=== PATIENT | male | born 1950 | race Caucasian/White ===

== ENCOUNTER 2018-05-04 10:10 | Emergency (ER) | payer MEDICARE, OTHER ==
[2018-05-04 10:41] LABS: BASOPHILS % (AUTO) 0.6 %; EOSINOPHILS # (AUTO) 0.3 10^3/uL (0.0-0.7); HGB - HEMOGLOBIN 14.2 g/dL (14.0-18.0); LYMPHOCYTES # (AUTO) 1.2 10^3/uL (1.5-3.5); LYMPHOCYTES % (AUTO) 18.5 %; MEAN CORPUSCULAR HEMOGLOBIN 30.2 pg (27.0-31.0); MEAN CORPUSCULAR VOLUME 86.3 fL (80.0-94.0); MEAN PLATELET VOLUME 7.3 fL (7.4-11.4); MONOCYTES # (AUTO) 0.5 10^3/uL (0.0-1.0); NEUTROPHILS # (AUTO) 4.5 10^3/uL (1.5-6.6); NEUTROPHILS % (AUTO) 68.9 %; PLT - PLATELET COUNT 240 10^3/uL (130-450); RED CELL DISTRIBUTION WIDTH 13.8 % (12.0-15.0); WHITE BLOOD COUNT 6.5 x10^3/uL (4.8-10.8)
[2018-05-04 10:54] LABS: ALBUMIN 3.7 g/dL (3.2-5.5); ALBUMIN/GLOBULIN RATIO 0.9 (1.0-2.2); BILIRUBIN,TOTAL 1.1 mg/dL (0.2-1.0); CALCIUM 9.3 mg/dL (8.5-10.3); CREATININE 0.9 mg/dL (0.6-1.2); TOTAL PROTEIN 7.6 g/dL (6.7-8.2)
--- NOTE | 2018-05-04 11:33 | XRAY Report ---
Procedure Date: 05/04/2018 Accession Number: [id number] / [id number] Procedure: XR - Chest 2 View X-Ray CPT Code: 95745 FULL RESULT: EXAM: CHEST RADIOGRAPHY EXAM DATE: 05/04/2018 11:12 AM. CLINICAL HISTORY: Chest pain. COMPARISON: None. TECHNIQUE: 2 views. FINDINGS: Lungs/Pleura: No focal opacities evident. No pleural effusion. No pneumothorax. Normal volumes. Mediastinum: Heart and mediastinal contours are unremarkable. Other: None. IMPRESSION: Normal 2-view chest radiography. RADIA
--- NOTE | 2018-05-04 11:43 | ED Physician Documentation ---
PD HPI CHEST PAIN - Stated complaint Stated Complaint: CHEST PX - Chief complaint Chief Complaint: Cardiac - History obtained from History obtained from: Patient - History of Present Illness Timing - onset: Today Timing - onset during: Light activity (onset substernal chest pain soon after awakening this morning. Symptoms about 7-8 am, lasted for 10-15 minutes and improved with NTG. Feeling okay since. Has history of known CAD from recent workup including heart angiogram. Is scheduled for CABG this in [place]. He is not on any anti-anginals regularly.) Timing - duration: Minutes (10-15) Timing - details: Abrupt onset, Now resolved Quality: Pressure, Tightness. No: Sharp, Tearing Location: Substernal, Epigastric Radiation: No: Back Improved by: Nitro (single dose) Worsened by: Exertion. No: Inspiration, Movement, Palpation Associated symptoms: Shortness of air. No: Nausea, Feeling faint / dizzy Similar symptoms before: Has not had sx before (has had exertional dyspnea and some chest pressure, but not had it with just simple activity in the past.) Review of Systems Constitutional: denies: Fever, Chills, Myalgias Nose: denies: Rhinorrhea / runny nose, Congestion Throat: denies: Sore throat Cardiac: denies: Palpitations, Pedal edema, Calf pain Respiratory: denies: Cough, Wheezing GI: denies: Abdominal Pain, Nausea, Vomiting Skin: denies: Rash, Lesions Neurologic: denies: Generalized weakness, Focal weakness, Numbness, Near syncope , Altered mental status, Headache, Head injury Endocrine: denies: Easy bruising / bleeding PD PAST MEDICAL HISTORY - Past Medical History Past Medical History: Yes Cardiovascular: Coronary artery disease (JUNE and some chest pressure led to evaluation and subsequent heart angio, showing diffuse nonstentable lesions. Is scheduled for CABG in 3 days. ) Respiratory: None Neuro: None Endocrine/Autoimmune: None GI: GERD : None Psych: None Musculoskeletal: Osteoarthritis Derm: None - Past Surgical History Past Surgical History: Yes Ortho: Shoulder arthroplasty - Present Medications Home Medications: Ambulatory Orders Medication Instructions Recorded Confirmed Aspirin 05/04/18 05/04/18 Diphenhydramine HCl [Allergy 05/04/18 Medication] Fluticasone [Flonase] 05/04/18 Isosorbide Dinitrate 10 mg PO DAILY #5 tablet 05/04/18 Metoprolol Tartrate 12.5 mg PO DAILY #5 tablet 05/04/18 [place]-3/Dha/Epa/Fish Oil [Fish Oil 05/04/18 1,000 mg Softgel] Omeprazole [PriLOSEC] 05/04/18 - Allergies Allergies/Adverse Reactions: Allergies Allergy/AdvReac Type Severity Reaction Status Date / Time simvastatin Allergy Cramps Verified 05/04/18 10:17 - Social History Does the pt smoke?: No Smoking Status: Never smoker Does the pt drink ETOH?: Yes ETOH Use: Beer, Liquor Does the pt have substance abuse?: No - Family History Family history: reports: CAD - Immunizations Immunizations: TDAP >10years/unknown - POLST Patient has POLST: No PD ED PE NORMAL - Vitals Vital signs reviewed: Yes - General General: Alert and oriented X 3, No acute distress, Well developed/nourished - HEENT HEENT: Moist mucous membranes, Pharynx benign - Neck Neck: Supple, no meningeal sign, No adenopathy - Cardiac Cardiac: RRR, No murmur - Respiratory Respiratory: Clear bilaterally - Abdomen Abdomen: Soft, Non tender - Back Back: No CVA TTP - Derm Derm: Normal color, Warm and dry - Extremities Extremities: No deformity, No tenderness to palpate, Normal ROM s pain, No edema , No calf tenderness / cord - Neuro Neuro: Alert and oriented X 3, No motor deficit, Normal speech Results - Vitals Vitals: Vital Signs - 24 hr 05/04/18 05/04/18 05/04/18 10:14 13:31 14:18 Temperature 36.7 C Heart Rate 72 67 67 Respiratory 20 16 16 Rate Blood Pressure 138/83 H 146/89 H 144/86 H O2 Saturation 96 97 97 Oxygen O2 Source Room air - EKG (time done) 10:17 Rate: Rate (enter#) (74) Rhythm: NSR [place]: Normal Intervals: Normal OK QRS: Normal Ischemia: Normal ST segments, Q waves (leads III and aVF). No: ST elevation c/ w ischemia, ST depression - Labs Labs: Laboratory Tests 05/04/18 05/04/18 05/04/18 10:30 10:30 10:30 WBC 6.5 RBC 4.70 Hgb 14.2 Hct 40.6 L MCV 86.3 MCH 30.2 MCHC 35.0 RDW 13.8 Plt Count 240 MPV 7.3 L Neut # (Auto) 4.5 Lymph # (Auto) 1.2 L [place] # (Auto) 0.5 Eos # (Auto) 0.3 Baso # (Auto) 0.0 Absolute Nucleated RBC 0.00 Nucleated RBC % 0.0 Sodium 135 Potassium 3.6 Chloride 103 Carbon Dioxide 23 Anion Gap 9.0 BUN 17 Creatinine 0.9 Estimated GFR (MDRD) 85 L Glucose 124 H Calcium 9.3 Total Bilirubin 1.1 H AST 180 H ALT 90 H Alkaline Phosphatase 82 Troponin I < 0.04 Total Protein 7.6 Albumin 3.7 Globulin 3.9 Albumin/Globulin Ratio 0.9 L Lipase 43 05/04/18 12:42 WBC RBC Hgb Hct MCV MCH MCHC RDW Plt Count MPV Neut # (Auto) Lymph # (Auto) [place] # (Auto) Eos # (Auto) Baso # (Auto) Absolute Nucleated RBC Nucleated RBC % Sodium Potassium Chloride Carbon Dioxide Anion Gap BUN Creatinine Estimated GFR (MDRD) Glucose Calcium Total Bilirubin AST ALT Alkaline Phosphatase Troponin I < 0.04 Total Protein Albumin Globulin Albumin/Globulin Ratio Lipase - Rads (name of study) chest Radiology: Prelim report reviewed, EMP read contemporaneously (no acute process) PD MEDICAL DECISION MAKING - ED course Complexity details: reviewed results, considered differential, d/w patient, d/w eligibility consultant (Dr. Tafoya - CT surgery at [place], who would like patient on low dose beta and nitrate. To call him or return to ED if recurrent CP and would do transfer/CABG sooner, otherwise has preop assessment tomorrow and surgery . ) - Sepsis Event Vital Signs: Vital Signs - 24 hr 05/04/18 05/04/18 05/04/18 10:14 13:31 14:18 Temperature 36.7 C Heart Rate 72 67 67 Respiratory 20 16 16 Rate Blood Pressure 138/83 H 146/89 H 144/86 H O2 Saturation 96 97 97 Oxygen O2 Source Room air Departure - Departure Disposition: 01 Home, Self Care Clinical Impression: Angina pectoris Chest pain Qualifiers: Chest pain type: precordial pain Qualified Code(s): R07.2 - Precordial pain Condition: Stable Record reviewed to determine appropriate education?: Yes Instructions: ED Chest Pain Angina Stable Prescriptions: Isosorbide Dinitrate 10 mg PO DAILY #5 tablet Metoprolol Tartrate 12.5 mg PO DAILY #5 tablet Comments: Continue your baby aspirin a day. Stay well-hydrated. Start metoprolol 12-1/2 mg daily and isosorbide 10 mg daily. Follow-up with the preop evaluation tomorrow as planned. If you have recurrent chest pain, use and nitroglycerin tablets that you have. Call Dr. Tafoya's office or return to the ER if you have recurring episodes of the chest pain as this may indicate a need for the bypass surgery sooner. Otherwise plan on the surgery as scheduled. Discharge Date/Time: 05/04/18 14:18
[2018-05-04] MEDS ORDERED: METOPROLOL TARTRATE 50 MG TABLET PO STA (12:32)
[2018-05-04 14:19] VITALS: BP 144/86
[2018-05-05] MEDS ORDERED: ISOSORBIDE MONONITRATE ER 30 MG TABLET PO ONE (13:00)
== END 2018-05-04 14:18 | disposition home or self-care (01) ==
LOC: ED 10:10
DX: I25.119 Atherosclerotic heart disease of native coronary artery with unspecified angina pectoris (principal); R07.2 Precordial pain; Z82.49 Family history of ischemic heart disease and other diseases of the circulatory system; Z79.82 Long term (current) use of aspirin; K21.9 Gastro-esophageal reflux disease without esophagitis
CPT/HCPCS: 36415; 71046; 80053; 83690; 84484; 85025; 93005; 99283; 99284; A9270

== ENCOUNTER 2018-11-30 11:33 | Outpatient (CLI) | payer MEDICARE, OTHER ==
--- NOTE | 2018-11-30 14:41 | XRAY Report ---
Reason: PAIN IN LEFT FOOT Procedure Date: 11/30/2018 Accession Number: [id number] / [id number] Procedure: XR - Foot 2 View LT CPT Code: FULL RESULT: EXAM: LEFT FOOT RADIOGRAPHY. EXAM DATE: 11/30/2018 12:05 PM. CLINICAL HISTORY: Pain in left foot. COMPARISON: None. TECHNIQUE: 2 views. FINDINGS: Bones: Mild inferior calcaneal spurring is noted. No fractures or bone lesions. Joints: Normal. No subluxations. Soft Tissues: Normal. No soft tissue swelling. IMPRESSION: Mild inferior calcaneal spurring. RADIA
== END 2018-11-30 11:34 | disposition home or self-care (01) ==
LOC: DI 11:33
PROVIDERS: ATTEND Nurse Practitioner Family
DX: M79.672 Pain in left foot (principal); M77.32 Calcaneal spur, left foot

== ENCOUNTER 2020-05-12 07:14 | Outpatient (CLI) | payer MEDICARE, OTHER ==
--- NOTE | 2020-05-12 10:54 | Ultrasound Report ---
PROCEDURE: Abdomen Complete INDICATIONS: RT UPPER QUADRANT PAIN TECHNIQUE: Real-time scanning was performed of the abdominal and retroperitoneal organs, with image documentatio n. COMPARISON: None. FINDINGS: Liver: Liver is normal in size and homogeneous in echotexture, diffusely hyperechoic consistent with mild to moderate fatty infiltration. Gallbladder: The gallbladder appears abnormal, with abnormal gallbladder wall thickening generally me asuring up to 6 millimeters but with a region of either tumefactive sludge or mass, adherent, measuri ng up to 0.6 x 1.1 x 2.1 cm along the posterior gallbladder wall. Biliary ducts: Intrahepatic bile ducts are non-dilated. Extrahepatic bile duct caliber measures 4.0 mm. Normal is 6-7 mm or less in diameter, or 10 mm or less post-cholecystectomy. No adjacent peric holecystic free fluid is seen. Pancreas: Visualized portions of the pancreas are sonographically normal. Spleen: Spleen is normal in size and homogeneous in echotexture. Kidneys: Kidneys are normal in size and echotexture. Right kidney measures 12.0 cm long; left kidne y measures 12.3 cm long. No hydronephrosis or nephrolithiasis. No solid masses. Note is made of an exophytic cyst measuring up to 3.8 x 3.9 x 4.5 cm at the right kidney. Aorta: Visualized aorta is normal in caliber at less than 3 cm. Iliacs: Proximal common iliac arteries are normal in caliber at less than 2.5 cm. IVC: Intrahepatic inferior vena cava is patent. Miscellaneous: No free abdominal fluid. IMPRESSION: Abnormal appearance of the gallbladder with concentric mural thickening up to 6 mm throughout the gal lbladder and an area of posterior masslike filling defect within the gallbladder lumen measuring up t o 1.1 x 2.1 x 0.6 cm. Both gallbladder neoplasm and tumefactive adherent sludge could produce this ap pearance. Surgical consultation is recommended. No mass within the liver is found, no biliary distention is seen. Fatty infiltration is the likely ca use for mild to moderate increased echotexture of the liver parenchyma. Reviewed by: Iker Man MD on 05/12/2020 10:53 AM PDT Approved by: Iker Man MD on 05/12/2020 10:53 AM PDT Station ID: [id number]
== END 2020-05-12 07:15 | disposition home or self-care (01) ==
LOC: DI 07:14
PROVIDERS: ATTEND Nurse Practitioner Family
DX: R93.2 Abnormal findings on diagnostic imaging of liver and biliary tract (principal)
CPT/HCPCS: 76700

== ENCOUNTER 2020-05-25 14:15 | Outpatient (CLI) | payer MEDICARE, OTHER | END 2020-05-25 14:16 | disposition home or self-care (01) | LOC: LAB 14:15 | PROVIDERS: ATTEND Surgery | DX: Z01.812 Encounter for preprocedural laboratory examination (principal); K80.10 Calculus of gallbladder with chronic cholecystitis without obstruction; Z20.828 Contact with and (suspected) exposure to other viral communicable diseases | CPT/HCPCS: 93005; U0004 ==

== ENCOUNTER 2020-10-17 15:05 | Outpatient (CLI) | payer MEDICARE, OTHER ==
--- NOTE | 2020-10-17 15:39 | XRAY Report ---
PROCEDURE: Hip w/Pelvis 2-3V RT INDICATIONS: PAIN IN RIGHT HIP TECHNIQUE: AP pelvis with lateral view(s) of the bilateral hip(s). COMPARISON: None. FINDINGS: Bones: No fractures or dislocations. Pelvic ring appears intact. No suspicious bony lesions. Mode rate bilateral hip joint space narrowing. Mild bilateral hip periarticular osteophyte formation. Soft tissues: The visualized bowel gas pattern is normal. No suspicious soft tissue calcifications. IMPRESSION: Osteoarthritis. No acute fracture. No osseous lesion. If symptoms and/or clinical suspic ion for pathology continue, further assessment with repeat plain films, or advanced imaging (e.g., CT , MRI, or bone scan) is recommended for further assessment. Reviewed by: Andrew Macias MD on 10/17/2020 3:37 PM PST Approved by: Andrew Macias MD on 10/17/2020 3:37 PM PST Station ID: [id number]
== END 2020-10-17 15:06 | disposition home or self-care (01) ==
LOC: DI.S 15:05
PROVIDERS: ATTEND Nurse Practitioner Family
DX: M16.11 Unilateral primary osteoarthritis, right hip (principal)

== ENCOUNTER 2022-03-08 08:33 | Outpatient (CLI) | payer MEDICARE, OTHER ==
[2022-03-08 09:30] LABS: CHOL/HDL RATIO 2.6 (<5.0); CHOLESTEROL 151 mg/dL; HDL CHOLESTEROL 58 mg/dL; LDL CHOLESTEROL,CALCULATED 75 mg/dL; LDL/HDL RATIO 1.3 (<3.6); TRIGLYCERIDES 88 mg/dL; VLDL CHOLESTEROL 18 mg/dL
== END 2022-03-08 08:34 | disposition home or self-care (01) ==
LOC: LAB 08:33
DX: E78.5 Hyperlipidemia, unspecified (principal)
CPT/HCPCS: 36415; 80061; 83721

== ENCOUNTER 2023-05-02 07:00 | Outpatient (CLI) | payer MEDICARE, OTHER ==
--- NOTE | 2023-05-02 13:55 | XRAY Report ---
PROCEDURE: Ankle 3 View LT INDICATIONS: LEFT ANKLE SPRAIN TECHNIQUE: 3 views of the ankle were acquired. COMPARISON: None. FINDINGS: Bones: Minimally displaced oblique intra-articular fracture at the distal fibular metaphysis. The mo rtise joint is maintained. Small posterior plantar calcaneal enthesophytes. Soft tissues: Soft tissue edema seen surrounding the ankle. IMPRESSION: Minimally displaced oblique fracture of the distal fibula. Reviewed by: Jose Guadalupe Taveras MD on 05/02/2023 1:54 PM PDT Approved by: Jose Guadalupe Taveras MD on 05/02/2023 1:54 PM PDT Station ID: [id number]
== END 2023-05-02 23:59 | disposition home or self-care (01) ==
LOC: DI.S 07:00
PROVIDERS: ATTEND Emergency Medicine
DX: S82.432A Displaced oblique fracture of shaft of left fibula, initial encounter for closed fracture (principal)

== ENCOUNTER 2023-05-28 08:24 | Outpatient (CLI) | payer MEDICARE, OTHER ==
--- NOTE | 2023-05-28 11:52 | XRAY Report ---
PROCEDURE: Ankle 3 View LT INDICATIONS: FX OF FIBULA TECHNIQUE: 3 views of the ankle were acquired. COMPARISON: 05/02/2023 FINDINGS: Bones: Increased bony bridging and callus formation of minimally displaced intra-articular fracture of the distal fibular metaphysis.. Ankle mortise is maintained. Small plantar calcaneal enthesophyte .. Soft tissues: Decreasing soft tissue edema surrounding the ankle. IMPRESSION: Ongoing healing of minimally displaced oblique intra-articular fracture of the distal fibular metadia physis. Alignment is unchanged. No new fracture identified. Reviewed by: Ruth Gallardo MD on 05/28/2023 11:51 AM PDT Approved by: Ruth Gallardo MD on 05/28/2023 11:51 AM PDT Station ID: [id number]
== END 2023-05-28 08:25 | disposition home or self-care (01) ==
LOC: DI.S 08:24
PROVIDERS: ATTEND Nurse Practitioner Family
DX: S82.832D Other fracture of upper and lower end of left fibula, subsequent encounter for closed fracture with routine healing (principal)

== ENCOUNTER 2023-10-03 08:28 | Outpatient (CLI) | payer MEDICARE, OTHER ==
[2023-10-03 09:00] LABS: CHOL/HDL RATIO 3.1 (<5.0); CHOLESTEROL 171 mg/dL; HDL CHOLESTEROL 55 mg/dL; LDL CHOLESTEROL,CALCULATED 86 mg/dL; LDL/HDL RATIO 1.6 (<3.6); TRIGLYCERIDES 149 mg/dL (48-352); VLDL CHOLESTEROL 30 mg/dL
== END 2023-10-03 08:29 | disposition home or self-care (01) ==
LOC: LAB 08:28
PROVIDERS: ATTEND Physician Assistant Medical
DX: E78.5 Hyperlipidemia, unspecified (principal)
CPT/HCPCS: 36415; 80061; 83721

== ENCOUNTER 2024-01-16 08:18 | Outpatient (CLI) | payer MEDICARE, OTHER ==
[2024-01-16 08:51] LABS: ALBUMIN 4.6 g/dL (3.2-5.5); ALKALINE PHOSPHATASE 49 IU/L (42-121); ALT ALANINE AMINOTRANSFERASE 18 IU/L (10-60); AST ASPARTATE AMINOTRANSFERASE 20 IU/L (10-42); BILIRUBIN,DIRECT < 0.10 mg/dL (0.03-0.18); BILIRUBIN,TOTAL 0.6 mg/dL (0.2-1.0); CHOL/HDL RATIO 2.6 (<5.0); CHOLESTEROL 145 mg/dL; HDL CHOLESTEROL 55 mg/dL; LDL CHOLESTEROL,CALCULATED 69 mg/dL; LDL/HDL RATIO 1.3 (<3.6); TOTAL PROTEIN 7.3 g/dL (6.4-8.9); TRIGLYCERIDES 107 mg/dL (48-352); VLDL CHOLESTEROL 21 mg/dL
== END 2024-01-16 08:19 | disposition home or self-care (01) ==
LOC: LAB 08:18
PROVIDERS: ATTEND Internal Medicine Cardiovascular Disease
DX: E78.5 Hyperlipidemia, unspecified (principal)
CPT/HCPCS: 36415; 80061; 80076; 83721

== ENCOUNTER 2024-03-13 08:00 | Outpatient (CLI) | payer MEDICARE, OTHER ==
--- NOTE | 2024-03-14 07:14 | XRAY Report ---
PROCEDURE: Chest 2V INDICATIONS: ACUTE COUGH TECHNIQUE: 2 views of the chest were acquired. COMPARISON: 05/04/2018 FINDINGS: Surgical changes and devices: There are sternotomy wires. Lungs and pleura: No dense consolidation or pleural effusion. Low lung volumes Mediastinum: Normal heart size Bones and chest wall: Unremarkable IMPRESSION: No acute radiographic abnormality Reviewed by: Ayaan Alamo MD on 03/14/2024 7:13 AM PDT Approved by: Ayaan Alamo MD on 03/14/2024 7:13 AM PDT Station ID: [id number]
== END 2024-03-13 23:59 | disposition home or self-care (01) ==
LOC: DI.S 08:00
PROVIDERS: ATTEND Registered Nurse
DX: R05.1 Acute cough (principal)